=== PATIENT | female | born 1995 | race Caucasian/White ===

== ENCOUNTER 2017-04-14 01:13 | Emergency (ER) | payer MEDICAID, OTHER ==
[~2017-04-14] VITALS: Ht 162.6 cm; Wt 68.0 kg
[2017-04-14 01:18] VITALS: BP 115/82
[2017-04-14] MEDS ORDERED: NACL 0.9% 1,000 ML IV ONE (03:20)
[2017-04-14] MEDS ORDERED: KETOROLAC 30 MG/ML VIAL IVP ONE (03:20)
--- NOTE | 2017-04-14 03:20 | NUR ---
PATIENT TO ER BED 8.
--- NOTE | 2017-04-14 03:22 | NUR ---
PATIENT BEING EVALUATED BY DR. SOTO.
--- NOTE | 2017-04-14 03:22 | NUR ---
PT IS 22/F BIB MOTHER TO ED WITH C/O ABD PAIN RADIATING TO HER BACK, WITH VOMITING X 1 WEEK. PT STATES MED HX OF KIDNEY STONES. DENIES N/V/D; SKIN IS PINK/WARM/DRY; AAOX4 WITH EVEN AND STEADY GAIT; LUNGS CLEAR BL; HR EVEN AND REGULAR; PT DENIES ANY FEVER, CP, SOB, OR COUGH AT THIS TIME; PATIENT STATES PAIN OF 6/10 AT THIS TIME; VSS; PATIENT POSITIONED FOR COMFORT; HOB ELEVATED; BEDRAILS UP X2; BED DOWN. ER MD MADE AWARE OF PT STATUS.
--- NOTE | 2017-04-14 05:39 | NUR ---
PT RESTING IN BED. NO SOB AT THIS TIME. PT DENIES ANY PAIN AT THIS TIME. MOTHER AT BEDSIDE. WILL CONTINUE TO MONITOR.
[2017-04-14 07:17] VITALS: BP 118/71
--- NOTE | 2017-04-14 07:19 | NUR ---
Patient discharged with v/s stable. Written and verbal after care instructions given and explained. Patient alert, oriented and verbalized understanding of instructions. Ambulatory with steady gait. All questions addressed prior to discharge. ID band removed. Patient advised to follow up with PMD. Rx of MACROBID CAPSULE given. Patient educated on indication of medication including possible reaction and side effects. Opportunity to ask questions provided and answered.
== END 2017-04-14 07:19 | disposition home or self-care (01) ==
LOC: MED 01:13
DX: N39.0 Urinary tract infection, site not specified (principal)
CPT/HCPCS: 36415; 80053; 81001; 85025; 87086; 96361; 96374; 99284; J1885; J7030

== ENCOUNTER 2019-11-04 19:03 | Emergency (ER) | payer SELFPAY ==
[~2019-11-04] VITALS: Ht 170.2 cm; Wt 63.5 kg
[2019-11-04 19:16] VITALS: BP 132/78
--- NOTE | 2019-11-04 20:36 | NUR ---
PT AMBULATED TO BED 11
--- NOTE | 2019-11-04 21:00 | NUR ---
24 Y/O FEMALE PRESENTS TO ED, C/O LEFT KNEE PAIN 06/28. PT STATES HAVING FALL LAST SUNDAY. PT WENT TO HOSPITAL D/C WITHOUT MEDICATIONS AND REFERRED FOR MRI. PT STATES PAIN IS WORSENING TODAY, DOES NOT RADIATE. LIMITED ROM. BILAT STRONG PEDAL PULSES. PT AMBULATES WITH CRUTCHES. NO MEDICATIONS TAKEN PRIOR TO COMING TO ED. PT VSS. ERMD AWARE. WILL CONTINUE TO MONITOR.
[2019-11-04] MEDS ORDERED: KETOROLAC 30 MG/ML VIAL IM ONE (21:25)
--- NOTE | 2019-11-04 22:10 | NUR ---
KNEE IMOBOLIZER PLACED ON PTS LEFT KNEE. PTS PMSC WNL.
[2019-11-04 22:29] VITALS: BP 132/78
--- NOTE | 2019-11-04 22:29 | NUR ---
PT DISCHARGED WITH PAPERWORK. EDUCATED PT REGARDING MEDICATIONS AND D/C DIAGNOSIS. PT VERBALIZED UNDERSTANDING. TOLD PT TO FOLLOW UP WITH PCP AND WHEN TO RETURN TO ED. PT AT STABLE CONDITION. AMBULATES WITH CRUTCHES. ALL QUESTIONS ANSWERED.
== END 2019-11-04 22:20 | disposition home or self-care (01) ==
LOC: MED 19:03
DX: S83.92XA Sprain of unspecified site of left knee, initial encounter (principal); W19.XXXA Unspecified fall, initial encounter; Y93.89 Activity, other specified; Y92.89 Other specified places as the place of occurrence of the external cause; Y99.8 Other external cause status
CPT/HCPCS: 29505; 73562; 96372; 99283; J1885

== ENCOUNTER 2020-05-28 20:38 | Emergency (ER) | payer OTHER ==
--- NOTE | 2020-05-28 20:59 | NUR ---
PATIENT LEFT WITHOUT BEING SEEN BY DR. HERNDON. NO FURTHER CARE PROVIDED FOR PATIENT.
== END 2020-05-28 20:59 | disposition left against medical advice (07) ==
LOC: MED 20:38
DX: Z53.21 Procedure and treatment not carried out due to patient leaving prior to being seen by health care provider (principal)

== ENCOUNTER 2020-05-31 18:34 | Emergency (ER) | payer OTHER ==
[~2020-05-31] VITALS: Ht 162.6 cm; Wt 74.4 kg
[2020-05-31 18:40] VITALS: BP 104/60
--- NOTE | 2020-05-31 18:50 | NUR ---
PT C/O CONSISTENT SHARP PAIN AT 6 O'CLOCK AREA BELOW AREOLA ON THE RT BREAST. PT DENIES ANY NIPPLE DIACHARGE OR ITCHIESS. REPORTS SISTER HAS FIBROADENOMA BUT DENIES FAMILY HX OF BREAST CA. PT STATES SHE HAS HX OF HYPOTHYROIDISM AND ANEMIA BUT HAVEN'T DONE BLOOD WORK FOR A LONG TIME OR TAKEN ANY MEDS. A SMALL ROUND, FIRM, AND MOVABLE MASS WITH PAIN TO PALPATION ON THE PAINFUL AREA. AAOX4 WITH EVEN AND STEADY GAIT; PT DENIES ANY FEVER, CP, SOB, OR COUGH AT THIS TIME; PATIENT STATES PAIN OF 8/10 AT THIS TIME; VSS; PATIENT POSITIONED FOR COMFORT; HOB ELEVATED; BEDRAILS UP X1; BED DOWN. ER MD MADE AWARE OF PT STATUS.
--- NOTE | 2020-05-31 19:13 | NUR ---
Pt report given to CARMENCITA Murray. Transfer of care at this time.
--- NOTE | 2020-05-31 20:05 | NUR ---
Patient discharged with v/s stable. Written and verbal after care instructions given and explained. Patient verbalized understanding. Ambulatory with steady gait. All questions addressed prior to discharge. Advised to follow up with PMD. Prescription of Naprosyn was given. Pt walk in steady gait and d/c.
[2020-05-31 20:06] VITALS: BP 125/80
== END 2020-05-31 20:05 | disposition home or self-care (01) ==
LOC: MED 18:34
DX: N60.09 Solitary cyst of unspecified breast (principal); N63.0 Unspecified lump in unspecified breast; E03.9 Hypothyroidism, unspecified
CPT/HCPCS: 99283

== ENCOUNTER 2021-04-15 00:10 | Emergency (ER) | payer OTHER ==
[~2021-04-15] VITALS: Ht 162.6 cm; Wt 63.5 kg
[2021-04-15 00:24] VITALS: BP 85/40
[2021-04-15] MEDS ORDERED: ALBU0.0912 IH (00:51)
[2021-04-15] MEDS ORDERED: PRED20TA6 PO (00:51)
--- NOTE | 2021-04-15 00:55 | NUR ---
PT CAME TO THE ED C/O THROAT PAIN. PT STATES THAT SHE 'HAS BEEN HAVING SORE THROAT X 1 WEEK, AND WAS HAVING A HARD TIME SLEEPING." DENIES N/V/D; SKIN IS PINK/WARM/DRY; AAOX4 WITH EVEN AND STEADY GAIT; LUNGS CLEAR BL; HR EVEN AND REGULAR; PT DENIES ANY FEVER, CP, SOB, OR COUGH AT THIS TIME; PATIENT STATES PAIN OF 9/10 TIGHT PAIN AT THIS TIME; VSS; PATIENT POSITIONED FOR COMFORT; HOB ELEVATED; BEDRAILS UP X2; BED DOWN. ER MD MADE AWARE OF PT STATUS. NKA PMH: DENIES
[2021-04-15] MEDS: guaiFENesin DM 200/20 MG-10 ML 10 ML UDC PO ONE (01:06)
[2021-04-15] MEDS: ALBUTEROL HFA MDI 90 MCG/ACTUATION 8 GM INH ONE (01:25)
[2021-04-15 01:42] VITALS: BP 85/40
--- NOTE | 2021-04-15 01:42 | NUR ---
Patient discharged with v/s stable. Written and verbal after care instructions given and explained. Patient alert, oriented and verbalized understanding of instructions. Ambulatory with steady gait. All questions addressed prior to discharge. ID band removed. Patient advised to follow up with PMD. Rx of PREDNISONE AND ALBUTEROL SULFATE given. Patient educated on indication of medication including possible reaction and side effects. Opportunity to ask questions provided and answered.
== END 2021-04-15 01:40 | disposition home or self-care (01) ==
LOC: MED 00:10
DX: R05 Cough (principal); R03.0 Elevated blood-pressure reading, without diagnosis of hypertension; E03.9 Hypothyroidism, unspecified; Z79.899 Other long term (current) drug therapy
CPT/HCPCS: 94664; 99283

== ENCOUNTER 2021-04-15 16:07 | Emergency (ER) | payer OTHER ==
[~2021-04-15] VITALS: Ht 160 cm; Wt 79.4 kg
[~2021-04-15 16:07] MED LIST: ALBU0.0912 IH; PRED20TA6 PO
[2021-04-15 16:28] VITALS: BP 120/84
--- NOTE | 2021-04-15 16:35 | NUR ---
JOELLEN EASTMAN EXAMINING PT AT BEDSIDE
[2021-04-15 16:44] VITALS: BP 120/84
--- NOTE | 2021-04-15 16:44 | NUR ---
Patient discharged with v/s stable. Written and verbal after care instructions given and explained. Patient verbalized understanding. Ambulatory with steady gait. All questions addressed prior to discharge. Advised to follow up with PMD.
== END 2021-04-15 16:44 | disposition home or self-care (01) ==
LOC: MED 16:07
DX: R03.0 Elevated blood-pressure reading, without diagnosis of hypertension (principal); E03.9 Hypothyroidism, unspecified; Z79.899 Other long term (current) drug therapy
CPT/HCPCS: 99281

== ENCOUNTER 2021-11-10 00:52 | Emergency (ER) | payer OTHER ==
[~2021-11-10] VITALS: Ht 165.1 cm; Wt 65.8 kg
[2021-11-10 00:59] VITALS: BP 133/90
--- NOTE | 2021-11-10 01:02 | NUR ---
TO LOBBY A /W BED VIA W/C
--- NOTE | 2021-11-10 02:39 | NUR ---
SEEN AND EXAMINED BY SHAYAN
[2021-11-10] MEDS ORDERED: KETOROLAC 30 MG/ML VIAL IVP ONE (02:50)
[2021-11-10 03:04] LABS: BASOPHILS % (AUTO) 0.6 % (0.0-2.0); EOSINOPHILS # (AUTO) 0.1 K/uL (0-0.4); EOSINOPHILS % (AUTO) 2.2 % (0.0-4.0); HEMATOCRIT 34.3 % (36-48); HEMOGLOBIN 11.9 g/dL (12.0-16.0); LYMPHOCYTES # (AUTO) 2.1 K/uL (2.5-16.5); LYMPHOCYTES % (AUTO) 32.5 % (20.5-51.1); MEAN CORPUSCULAR HEMOGLOBIN 30 pg (27-31); MEAN CORPUSCULAR HGB CONC 35 g/dL (33-37); MONOCYTES # (AUTO) 0.6 K/uL (0.8-1.0); MONOCYTES % (AUTO) 8.7 % (1.7-9.3); NEUTROPHILS # (AUTO) 3.6 K/uL (1.8-7.7); PLATELET COUNT (AUTO) 284 K/uL (140-450); RED BLOOD CELL COUNT(AUTO) 3.94 MIL/uL (4.20-5.40); RED CELL DISTRIBUTION WIDTH 12.6 % (11.6-13.7); WHITE BLOOD COUNT (AUTO) 6.4 K/uL (4.8-10.8)
[2021-11-10 03:19] LABS: ALBUMIN 3.9 g/dL (3.4-5.0); ANION GAP 12.6 (8-16); CARBON DIOXIDE 25.2 mmol/L (21-32); CREATININE 0.9 mg/dL (0.6-1.3); MAGNESIUM 2.4 mg/dL (1.8-2.4); POTASSIUM 3.8 mmol/L (3.5-5.1); TOTAL BILIRUBIN 0.3 mg/dL (0.0-1.0)
--- NOTE | 2021-11-10 03:55 | NUR ---
PT IS A 26 Y.O. F BIB MOTHER C/O CONSTIPATION / ABD PAIN. PT STATES SHE HAS BEEN CONSTIPATED AND HAS TRIED OTC MEDS TO GET A BOWEL MOVEMENT. PT SAYS IT HAS BEEN FOR TWO MONTHS. PT DENIES N/V/F/ SOB/COUGH/ CHEST PAIN. A&OX4.
[2021-11-10 05:27] VITALS: BP 104/60
== END 2021-11-10 04:30 | disposition home or self-care (01) ==
LOC: MED 00:52
DX: K59.00 Constipation, unspecified (principal); R10.13 Epigastric pain; R42 Dizziness and giddiness; E06.9 Thyroiditis, unspecified
CPT/HCPCS: 36415; 74018; 80053; 81002; 81025; 83690; 83735; 85025; 99284

== ENCOUNTER 2022-04-24 20:49 | Emergency (ER) | payer OTHER ==
[~2022-04-24] VITALS: Ht 165.1 cm; Wt 62.8 kg
[2022-04-24 21:48] VITALS: BP 118/71
--- NOTE | 2022-04-24 21:52 | NUR ---
PT TO BED 4.
[2022-04-24] MEDS ORDERED: ALUMINUM HYD/MAG/SIMETHICONE 30 ML UDC PO ONE (22:10)
--- NOTE | 2022-04-24 22:25 | NUR ---
27 Y.O. F BIB SELF C/O 06/28 BURNING EPIGASTRIC PAIN S/P EATING SPICY FOOD XYESTERDAY. REPORT N/V. REPORTS CONSTIPATION X5 DAYS. REPORTS FLANK PAIN. PT UNABLE TO KEEP FOOD OR WATER DOWN SINCE 2199 YESTERDAY. VITALS WNL, NO SOB, NO CHEST PAIN, NO PROBLEMS URINATING. PT A&OX4 AND RESTING IN BED. DENIES HX RX AND ALLERGIES
[2022-04-24 22:27] LABS: BASOPHILS % (AUTO) 0.6 % (0.0-2.0); HEMATOCRIT 40.1 % (36-48); HEMOGLOBIN 13.6 g/dL (12.0-16.0); LYMPHOCYTES # (AUTO) 0.8 K/uL (2.5-16.5); LYMPHOCYTES % (AUTO) 20.3 % (20.5-51.1); MEAN CORPUSCULAR HEMOGLOBIN 29 pg (27-31); MEAN CORPUSCULAR HGB CONC 34 g/dL (33-37); MEAN CORPUSCULAR VOLUME 86.9 fL (80-94); MONOCYTES # (AUTO) 0.4 K/uL (0.8-1.0); MONOCYTES % (AUTO) 10.8 % (1.7-9.3); NEUTROPHILS # (AUTO) 2.7 K/uL (1.8-7.7); NEUTROPHILS % (AUTO) 67.3 % (42.2-75.2); PLATELET COUNT (AUTO) 213 K/uL (140-450); RED BLOOD CELL COUNT(AUTO) 4.62 MIL/uL (4.20-5.40); RED CELL DISTRIBUTION WIDTH 13.9 % (11.6-13.7)
[2022-04-24 22:27] LABS: APPEARANCE,URINE HAZY (CLEAR); BILIRUBIN,URINE NEGATIVE (NEGATIVE); BLOOD, URINE TRACE-I (NEGATIVE); COLOR,URINE YELLOW (YELLOW); LEUKOCYTE ESTERASE ,URINE NEGATIVE (NEGATIVE); NITRITE, URINE NEGATIVE (NEGATIVE); UGLUCOSE NEGATIVE (NEGATIVE)
[2022-04-24 22:34] LABS: ANION GAP 9.9 (8-16); CARBON DIOXIDE 28.6 mmol/L (21-32); CREATININE 0.9 mg/dL (0.6-1.3); POTASSIUM 4.5 mmol/L (3.5-5.1)
[2022-04-24 22:35] LABS: RBC,URINE 0-5 /HPF (0-5); WBC,URINE 0-5 /HPF (0-5)
[2022-04-24 22:39] LABS: TOTAL BILIRUBIN 0.2 mg/dL (0.0-1.0)
[2022-04-24] MEDS ORDERED: ONDANSETRON 4 MG ODT PO ONE (22:50)
--- NOTE | 2022-04-24 23:00 | NUR ---
TAKEN TO CT
--- NOTE | 2022-04-24 23:08 | NUR ---
PT RETURN FROM CT
[2022-04-25] MEDS ORDERED: ONDA-188 SL (01:22)
[2022-04-25] MEDS ORDERED: KETOROLAC 15 MG/ML VIAL IM ONE (01:30)
[2022-04-25 01:59] VITALS: BP 106/68
--- NOTE | 2022-04-25 02:02 | NUR ---
PT STATED THAT PAIN WAS 7/10, STATED PT IS OK WITH PAIN 10
--- NOTE | 2022-04-25 02:02 | NUR ---
Patient discharged with v/s stable BY ERMD. Written and verbal after care instructions given and explained. Patient alert, oriented and verbalized understanding of instructions. Ambulatory with steady gait. All questions addressed prior to discharge. ID band removed. Patient advised to follow up with PMD. Rx of ZOFRAN ODT 4MG PO SUBLINGUAL given. Patient educated on indication of medication including possible reaction and side effects. Opportunity to ask questions provided and answered.
== END 2022-04-25 02:02 | disposition home or self-care (01) ==
LOC: MED 20:49
DX: R10.13 Epigastric pain (principal); R11.2 Nausea with vomiting, unspecified; E03.9 Hypothyroidism, unspecified; Z79.899 Other long term (current) drug therapy
CPT/HCPCS: 36415; 74176; 80053; 81001; 81025; 82150; 83690; 85025; 87086; 96372; 99284; J1885; Q0162

== ENCOUNTER 2023-11-09 18:48 | Emergency (ER) | payer OTHER ==
[~2023-11-09] VITALS: Ht 162.6 cm; Wt 63.5 kg
[~2023-11-09 18:48] MED LIST changes: +ONDA-188 SL
[2023-11-09 18:56] VITALS: BP 101/80; PULSE 84; RESP 15; TEMP 97.8; O2SAT 99
[2023-11-09 19:18] VITALS: BP 122/68; PULSE 84; RESP 18; TEMP 98.2
[2023-11-09 19:21] VITALS: O2SAT 99
[2023-11-09] MEDS ORDERED: KETOROLAC 30 MG/ML VIAL IVP ONE (19:35)
[2023-11-09] MEDS ORDERED: NACL 0.9% 1,000 ML IV ONE (19:35)
[2023-11-09 19:48] LABS: BASOPHILS # (AUTO) 0.1 K/uL (0.00-0.22); BASOPHILS % (AUTO) 0.7 % (0.0-2.0); EOSINOPHILS # (AUTO) 0.1 K/uL (0-0.4); EOSINOPHILS % (AUTO) 0.9 % (0.0-4.0); HEMOGLOBIN 13.1 g/dL (12.0-16.0); LYMPHOCYTES % (AUTO) 26.2 % (20.5-51.1); MEAN CORPUSCULAR HEMOGLOBIN 30 pg (27-31); MEAN CORPUSCULAR HGB CONC 35 g/dL (33-37); MEAN CORPUSCULAR VOLUME 87.1 fL (80-94); MONOCYTES # (AUTO) 0.5 K/uL (0.8-1.0); MONOCYTES % (AUTO) 6.8 % (1.7-9.3); NEUTROPHILS # (AUTO) 5.1 K/uL (1.8-7.7); NEUTROPHILS % (AUTO) 65.4 % (42.2-75.2); PLATELET COUNT (AUTO) 264 K/uL (140-450); RED BLOOD CELL COUNT(AUTO) 4.36 MIL/uL (4.20-5.40); RED CELL DISTRIBUTION WIDTH 13.5 % (11.6-13.7); WHITE BLOOD COUNT (AUTO) 7.8 K/uL (4.8-10.8)
[2023-11-09 20:02] LABS: ALBUMIN 3.9 g/dL (3.4-5.0); BILIRUBIN,DIRECT 0.1 mg/dL (0.0-0.3); TOTAL BILIRUBIN 0.3 mg/dL (0.0-1.0); TOTAL PROTEIN, SERUM 7.9 g/dL (6.4-8.2)
[2023-11-09 20:23] LABS: ANION GAP 13.6 (8-16); CARBON DIOXIDE 24.4 mmol/L (21-32); CREATININE 0.9 mg/dL (0.6-1.3)
[2023-11-09 20:38] LABS: AMPHETAMINE, URINE NEGATIVE ng/ml (NEG <=1000); BARBITURATE, URINE NEGATIVE ng/ml (NEG <=200); BENZODIAZEPINE, URINE NEGATIVE ng/mL (NEG <=200); CANNABINOID, URINE NEGATIVE ng/mL (NEG <=50); COCAINE, URINE NEGATIVE ng/mL (NEG <=300); OPIATE, URINE NEGATIVE ng/mL (NEG <=2000); PHENCYCLIDINE SCREEN,URINE NEGATIVE ng/mL (NEG <=25)
[2023-11-09] MEDS ORDERED: KETOROLAC 30 MG/ML VIAL ONE (21:01)
[2023-11-09] MEDS ORDERED: BEN10 PO (21:27)
== END 2023-11-09 22:02 | disposition home or self-care (01) ==
LOC: MED 18:48
DX: K52.9 Noninfective gastroenteritis and colitis, unspecified (principal); Z79.899 Other long term (current) drug therapy
CPT/HCPCS: 36415; 74177; 80048; 80076; 80305; 81025; 83690; 85025; 96361; 96374; 99285; J1885; J7030; Q9967

== ENCOUNTER 2024-02-23 16:03 | Emergency (ER) | payer OTHER ==
[~2024-02-23] VITALS: Ht 162.6 cm; Wt 65.3 kg
[~2024-02-23 16:03] MED LIST changes: +BEN10 PO
[2024-02-23 16:17] VITALS: BP 101/63; PULSE 68; RESP 16; TEMP 97.2; O2SAT 99
[2024-02-23] MEDS: KETOROLAC 30 MG/ML VIAL IM ONE (17:00)
[2024-02-23] MEDS ORDERED: CYCL-711 PO (18:35)
[2024-02-23] MEDS ORDERED: IBUP-1842 PO (18:35)
[2024-02-23] MEDS ORDERED: LID5T TP (18:35)
== END 2024-02-23 18:54 | disposition home or self-care (01) ==
LOC: MED 16:03
DX: S29.012A Strain of muscle and tendon of back wall of thorax, initial encounter (principal); E03.9 Hypothyroidism, unspecified; Z79.899 Other long term (current) drug therapy; X58.XXXA Exposure to other specified factors, initial encounter; Y93.89 Activity, other specified; Y92.89 Other specified places as the place of occurrence of the external cause; Y99.8 Other external cause status
CPT/HCPCS: 72040; 81025; 96372; 99283; J1885

== ENCOUNTER 2024-08-09 02:33 | Emergency (ER) | payer OTHER ==
[~2024-08-09] VITALS: Ht 162.6 cm; Wt 63.5 kg
[~2024-08-09 02:33] MED LIST changes: +CYCL-711 PO; +IBUP-1842 PO; +LID5T TP
[2024-08-09 02:39] VITALS: BP 125/80; PULSE 71; RESP 20; TEMP 98.2; O2SAT 99
[2024-08-09 02:51] VITALS: O2SAT 99
[2024-08-09] MEDS ORDERED: ALUMINUM HYD/MAG/SIMETHICONE 30 ML UDC ONE (03:08)
[2024-08-09] MEDS ORDERED: DICYCLOMINE HCL LIQUID 10 MG/5 ML UDC ONE (03:08)
[2024-08-09] MEDS: DICYCLOMINE HCL LIQUID 20 MG, ALUMINUM HYD/MAG/SIMETHICONE 30 ML, LIDOCAINE VISCOUS 2% ... PO ONE (03:14)
[2024-08-09 03:39] LABS: BASOPHILS % (AUTO) 0.5 % (0.0-2.0); EOSINOPHILS # (AUTO) 0.1 K/uL (0-0.4); EOSINOPHILS % (AUTO) 1.6 % (0.0-4.0); HEMATOCRIT 36.8 % (36-48); HEMOGLOBIN 12.5 g/dL (12.0-16.0); LYMPHOCYTES # (AUTO) 2.2 K/uL (2.5-16.5); LYMPHOCYTES % (AUTO) 33.9 % (20.5-51.1); MEAN CORPUSCULAR HEMOGLOBIN 30 pg (27-31); MEAN CORPUSCULAR HGB CONC 34 g/dL (33-37); MONOCYTES # (AUTO) 0.6 K/uL (0.8-1.0); MONOCYTES % (AUTO) 8.5 % (1.7-9.3); NEUTROPHILS # (AUTO) 3.6 K/uL (1.8-7.7); NEUTROPHILS % (AUTO) 55.5 % (42.2-75.2); PLATELET COUNT (AUTO) 236 K/uL (140-450); RED BLOOD CELL COUNT(AUTO) 4.14 MIL/uL (4.20-5.40); RED CELL DISTRIBUTION WIDTH 12.9 % (11.6-13.7); WHITE BLOOD COUNT (AUTO) 6.5 K/uL (4.8-10.8)
[2024-08-09 04:00] LABS: ANION GAP 11.3 (8-16); CALCIUM 8.7 mg/dL (8.5-10.1); CARBON DIOXIDE 28.3 mmol/L (21-32); CREATININE 0.8 mg/dL (0.6-1.3); POTASSIUM 3.6 mmol/L (3.5-5.1)
[2024-08-09 04:08] LABS: ALANINE AMINOTRANSFERASE 21 U/L (12-78); ALBUMIN 3.7 g/dL (3.4-5.0); ALKALINE PHOSPHATASE 72 U/L (50-136); ASPARTATE AMINOTRANSFERASE 17 U/L (15-37); BILIRUBIN,DIRECT 0.1 mg/dL (0.0-0.3); LIPASE 34 U/L (16-77); TOTAL BILIRUBIN 0.3 mg/dL (0.0-1.0); TOTAL PROTEIN, SERUM 7.1 g/dL (6.4-8.2)
[2024-08-09] MEDS ORDERED: ONDA-188 PO (06:00)
[2024-08-09] MEDS ORDERED: FAMO-90 PO (06:01)
== END 2024-08-09 06:21 | disposition home or self-care (01) ==
LOC: MED 02:33
DX: R10.12 Left upper quadrant pain (principal); R07.9 Chest pain, unspecified; R06.02 Shortness of breath; E03.9 Hypothyroidism, unspecified; Z79.899 Other long term (current) drug therapy
CPT/HCPCS: 36415; 71045; 74176; 80048; 80076; 81025; 83690; 84484; 85025; 93005; 99285; Q0092